=== PATIENT | male | born 1960 | race Caucasian/White ===

== ENCOUNTER 2020-01-24 10:34 | Emergency (ER) | payer OTHER ==
[~2020-01-24] VITALS: Ht 177.8 cm; Wt 118.7 kg
== END 2020-01-24 11:56 | disposition home or self-care (01) ==
LOC: ED 10:34
DX: S93.401A Sprain of unspecified ligament of right ankle, initial encounter (principal); X50.9XXA Other and unspecified overexertion or strenuous movements or postures, initial encounter; E11.9 Type 2 diabetes mellitus without complications; Z88.6 Allergy status to analgesic agent
CPT/HCPCS: 73610; 99283-25